=== PATIENT | female | born 1985 | race Two or more races ===

== ENCOUNTER 2021-12-15 19:41 | Emergency (ER) | payer SELFPAY ==
[~2021-12-15] VITALS: Ht 154.9 cm; Wt 56.8 kg
[2021-12-15 19:43] VITALS: BP 124/85
== END 2021-12-16 00:30 | disposition left against medical advice (07) ==
LOC: M ED 19:41
DX: Z53.21 Procedure and treatment not carried out due to patient leaving prior to being seen by health care provider (principal)